=== PATIENT | male | born 1950 | race Caucasian/White ===

== ENCOUNTER 2018-03-03 21:31 | Inpatient (IN) | payer OTHER, BC ==
[~2018-03-03] VITALS: Ht 182.9 cm; Wt 129.5 kg
[~2018-03-03 21:31] MED LIST: APIDRA SOL100 UNIT/1 SC; APIDRA100 UNIT/1 SC; ASPIR-LOW81 MG PO; COZAAR50 MG PO; CYCLOBENZAPRINE10 MG PO; DOCUSATE SODIU100 MG PO; ENDOCET 5-3251 EACH PO; HYZAAR 50-121 TABLET PO; INVOKANA300 MG PO; LANTUS 10100 UNITS/ SC; LEVEMIR FL100 UNITS/ SC; METOPROLOL TAR100 MG PO; NOVOLOG PE100 UNITS/ SC; PANTOPRAZOLE SO40 MG PO; PROTONIX40 MG PO; TRESIBA FL100 UNIT/1 SC; VICODIN,LORT1 TABLET PO; VYTORIN 10/21 TABLET PO; ZETIA10 MG PO; ZOCOR20 MG PO
[2018-03-04 10:18] VITALS: BP 169/90
[2018-03-04 17:10] VITALS: BP 161/77
[2018-03-04 18:34] LABS: HEMATOCRIT 36.1 % (38.0-50.0); HEMOGLOBIN 12.4 G/DL (12.5-16.6); MCH 31.7 PG (29.0-34.0); MCHC 34.3 G/DL (30.0-36.0); MCV 92.3 FL (86-99); PLATELET COUNT 219 K/uL (156-360); RBC DIS.WIDTH-CV 11.5 % (11.8-14.6); RED BLOOD COUNT 3.91 M/uL (4.00-5.50); WHITE BLOOD COUNT 19.4 K/uL (4.1-10.2)
[2018-03-04 18:48] LABS: CHLORIDE 104 MEQ/L (99-109); CREATININE 0.8 MG/DL (0.6-1.3); GFR ESTIMATE (CALCULATED) > 59 mL/min/ (58.99-99999); GLUCOSE 232 mg/dL (70-99); MAGNESIUM 1.8 mg/dl (1.3-2.7); POTASSIUM 3.8 MEQ/L (3.7-5.4); SODIUM 138 MEQ/L (136-147); UREA NITROGEN (BUN) 13 mg/dL (9-23)
[2018-03-05 00:03] VITALS: BP 149/72
[2018-03-05 04:24] VITALS: BP 131/61
[2018-03-05 06:17] LABS: HEMATOCRIT 35.5 % (38.0-50.0); HEMOGLOBIN 11.7 G/DL (12.5-16.6); MCH 30.9 PG (29.0-34.0); MCV 93.7 FL (86-99); PLATELET COUNT 231 K/uL (156-360); RBC DIS.WIDTH-CV 11.5 % (11.8-14.6); RBC DIS.WIDTH-SD 39.4 % (39-53); RED BLOOD COUNT 3.79 M/uL (4.00-5.50); WHITE BLOOD COUNT 13.9 K/uL (4.1-10.2)
[2018-03-05 06:39] LABS: CHLORIDE 102 MEQ/L (99-109); CREATININE 0.8 MG/DL (0.6-1.3); GFR ESTIMATE (CALCULATED) > 59 mL/min/ (58.99-99999); GLUCOSE 274 mg/dL (70-99); MAGNESIUM 1.8 mg/dl (1.3-2.7); PHOSPHORUS 3.4 mg/dL (2.5-4.9); SODIUM 137 MEQ/L (136-147); UREA NITROGEN (BUN) 12 mg/dL (9-23)
[2018-03-05 06:40] LABS: POTASSIUM 5.2 MEQ/L (3.7-5.4)
[2018-03-05 08:00] VITALS: BP 123/60
[2018-03-05 12:00] VITALS: BP 139/63
[2018-03-05 15:30] VITALS: BP 123/61
[2018-03-05 20:45] VITALS: BP 130/61
[2018-03-06] VITALS: BP 131/60
[2018-03-06 05:00] VITALS: BP 146/67
[2018-03-06 06:45] VITALS: BP 124/57
[2018-03-06 15:10] VITALS: BP 133/64
[2018-03-06 18:57] VITALS: BP 161/70
[2018-03-06 23:09] VITALS: BP 169/74
[2018-03-07 00:48] VITALS: BP 124/59
[2018-03-07 05:15] VITALS: BP 135/65
[2018-03-07 06:20] LABS: HEMATOCRIT 37.1 % (38.0-50.0); HEMOGLOBIN 12.4 G/DL (12.5-16.6); MCH 31.2 PG (29.0-34.0); MCHC 33.4 G/DL (30.0-36.0); MCV 93.2 FL (86-99); PLATELET COUNT 247 K/uL (156-360); RBC DIS.WIDTH-CV 11.3 % (11.8-14.6); RBC DIS.WIDTH-SD 38.5 % (39-53); RED BLOOD COUNT 3.98 M/uL (4.00-5.50); WHITE BLOOD COUNT 11.3 K/uL (4.1-10.2)
[2018-03-07 06:55] VITALS: BP 168/80
[2018-03-07 07:27] LABS: CHLORIDE 100 MEQ/L (99-109); CREATININE 0.7 MG/DL (0.6-1.3); GFR ESTIMATE (CALCULATED) > 59 mL/min/ (58.99-99999); GLUCOSE 197 mg/dL (70-99); SODIUM 138 MEQ/L (136-147); UREA NITROGEN (BUN) 8 mg/dL (9-23)
[2018-03-07 07:44] LABS: POTASSIUM 4.1 MEQ/L (3.7-5.4)
[2018-03-07 15:25] VITALS: BP 139/78
[2018-03-07 19:47] VITALS: BP 135/70
[2018-03-07 22:43] VITALS: BP 114/63
[2018-03-08 03:28] VITALS: BP 153/77
[2018-03-08 06:12] LABS: HEMATOCRIT 34.6 % (38.0-50.0); HEMOGLOBIN 11.7 G/DL (12.5-16.6); MCH 30.8 PG (29.0-34.0); MCHC 33.8 G/DL (30.0-36.0); MCV 91.1 FL (86-99); PLATELET COUNT 257 K/uL (156-360); RBC DIS.WIDTH-CV 11.3 % (11.8-14.6); RBC DIS.WIDTH-SD 37.4 % (39-53)
[2018-03-08 06:39] LABS: CHLORIDE 100 MEQ/L (99-109); CREATININE 0.8 MG/DL (0.6-1.3); GFR ESTIMATE (CALCULATED) > 59 mL/min/ (58.99-99999); GLUCOSE 72 mg/dL (70-99); MAGNESIUM 1.6 mg/dl (1.3-2.7); PHOSPHORUS 4.2 mg/dL (2.5-4.9); POTASSIUM 4.1 MEQ/L (3.7-5.4); SODIUM 139 MEQ/L (136-147); UREA NITROGEN (BUN) 8 mg/dL (9-23)
[2018-03-08 06:50] VITALS: BP 175/79
[2018-03-08 14:01] VITALS: BP 136/80
[2018-03-08 15:55] VITALS: BP 144/65
[2018-03-08 22:35] VITALS: BP 146/70
[2018-03-09 06:30] LABS: BASOPHIL (%) 0.5 % (0-1); BASOPHIL COUNT 0.1 K/uL (0-0.1); EOSINOPHIL (%) 2.5 % (0-5); EOSINOPHIL COUNT 0.3 K/uL (0-0.3); HEMATOCRIT 33.5 % (38.0-50.0); HEMOGLOBIN 11.3 G/DL (12.5-16.6); IMMATURE GRANULOCYTE (%) 0.3 % (0.0-0.7); LYMPHOCYTE (%) 18.1 % (15-42); LYMPHOCYTE COUNT 1.9 K/uL (1.0-2.8); MCH 30.8 PG (29.0-34.0); MCHC 33.7 G/DL (30.0-36.0); MCV 91.3 FL (86-99); MONOCYTE (%) 9.2 % (3-12); NEUTROPHIL (%) 69.4 % (45-76); NEUTROPHIL COUNT 7.3 K/uL (1.8-6.4); PLATELET COUNT 286 K/uL (156-360); RBC DIS.WIDTH-CV 11.5 % (11.8-14.6); RBC DIS.WIDTH-SD 38.1 % (39-53); RED BLOOD COUNT 3.67 M/uL (4.00-5.50); WHITE BLOOD COUNT 10.5 K/uL (4.1-10.2)
[2018-03-09 06:35] VITALS: BP 146/67
[2018-03-09 06:49] LABS: CHLORIDE 97 MEQ/L (99-109); CREATININE 0.8 MG/DL (0.6-1.3); GFR ESTIMATE (CALCULATED) > 59 mL/min/ (58.99-99999); POTASSIUM 4.3 MEQ/L (3.7-5.4); SODIUM 136 MEQ/L (136-147); UREA NITROGEN (BUN) 10 mg/dL (9-23)
[2018-03-09 06:51] LABS: GLUCOSE 227 mg/dL (70-99)
[2018-03-09] MEDS ORDERED: HYDROCODON-ACE1 EAC7 PO (08:28)
== END 2018-03-09 09:34 | disposition home or self-care (01) | DRG 331 ==
LOC: ENRESERV 21:31 → 2SOUTH 03-04 09:40 → 5EAST 03-04 09:40 → 2SOUTH 03-04 13:23 → 5EAST 03-04 17:24
PROVIDERS: Internal Medicine; Physician Assistant; Surgery
PROC: 0DTE0ZZ Resection of Large Intestine, Open Approach (ICD-10-PCS; principal; 2018-03-04)
DX: D12.2 Benign neoplasm of ascending colon (principal); E11.65 Type 2 diabetes mellitus with hyperglycemia; D12.3 Benign neoplasm of transverse colon; E78.5 Hyperlipidemia, unspecified; I25.10 Atherosclerotic heart disease of native coronary artery without angina pectoris; K21.9 Gastro-esophageal reflux disease without esophagitis; K57.90 Diverticulosis of intestine, part unspecified, without perforation or abscess without bleeding; I10 Essential (primary) hypertension; E11.51 Type 2 diabetes mellitus with diabetic peripheral angiopathy without gangrene; Z95.1 Presence of aortocoronary bypass graft; Z86.010 Personal history of colon polyps; I70.209 Unspecified atherosclerosis of native arteries of extremities, unspecified extremity; Z79.4 Long term (current) use of insulin; Z80.0 Family history of malignant neoplasm of digestive organs
CPT/HCPCS: 36415; 80048; 82948; 83735; 84100; 85025; 85027; 86850; 86900; 86901; 86920; 88309; 93005; 94799; C1751; J0131; J0330; J1170; J1335; J1815; J1885; J2001; J2250; J2405; J2710; J3010; J3475; J7050; J7120; J7643; P9045